=== PATIENT | male | born 1950 | race African-American/Black ===

== ENCOUNTER 2022-02-06 09:58 | Emergency (ER) | payer MEDICARE, OTHER ==
[~2022-02-06] VITALS: Ht 167.6 cm; Wt 90.0 kg
[2022-02-06 10:16] VITALS: BP 200/99
[2022-02-06] MEDS ORDERED: CEPH500C2 MT (13:03)
== END 2022-02-06 13:21 | disposition home or self-care (01) ==
LOC: ER 09:58
DX: M25.522 Pain in left elbow (principal); I10 Essential (primary) hypertension; F41.9 Anxiety disorder, unspecified; F32.A Depression, unspecified; F43.10 Post-traumatic stress disorder, unspecified; Z87.828 Personal history of other (healed) physical injury and trauma; Z90.49 Acquired absence of other specified parts of digestive tract
CPT/HCPCS: 73080; 99283